=== PATIENT | female | born 1970 | race Hispanic/Latino ===

== ENCOUNTER 2018-12-04 18:28 | Inpatient (IN) | payer SELFPAY ==
[~2018-12-04] VITALS: Ht 152.4 cm; Wt 79.1 kg
[2018-12-04] MEDS ORDERED: ZOSYN 3.375GM+NS 50ML 50 ML IV ONE (19:32)
[2018-12-04 19:52] LABS: BASOPHILS % (AUTO) 0.3 % (0.0-5.0); EOSINOPHILS % (AUTO) 2.3 % (0.0-8.0); MEAN CORPUSCULAR HGB CONC 34.5 g/dL (32.0-36.0); MEAN CORPUSCULAR VOLUME 89.8 fL (79-99); MONOCYTES % (AUTO) 6.1 % (3.0-13.0); NEUTROPHILS % (AUTO) 79.3 % (40.0-77.0); PLATELET COUNT (AUTO) 213 K/uL (130-400); RED BLOOD CELL COUNT(AUTO) 3.23 MIL/uL (4.00-5.50); RED CELL DISTRIBUTION WIDTH 13.1 % (11.0-15.5); WHITE BLOOD COUNT (AUTO) 19.4 K/uL (4.8-10.8)
[2018-12-04] MEDS ORDERED: ONDANSETRON HCL 4 MG/2 ML VIAL ONE (20:06)
[2018-12-04] MEDS ORDERED: MORPHINE SULFATE 4 MG/1ML SYG ONE (20:07)
[2018-12-04 20:12] LABS: CREATININE 0.9 mg/dL (0.5-1.5); POTASSIUM 4.1 mmol/L (3.5-5.1)
[2018-12-04 20:17] LABS: ALBUMIN 3.1 g/dL (3.5-5.0); BILIRUBIN,TOTAL 0.2 mg/dL (0.2-1.0); TOTAL PROTEIN, SERUM 7.4 g/dL (6.0-8.3)
[2018-12-04 20:35] LABS: CRP QUANTITATIVE 158.2 mg/L (0.00-9.0)
[2018-12-04] MEDS ORDERED: VANCOMYCIN 1GM+NS 250ML 250 ML IV ONE (20:56)
[2018-12-04] MEDS ORDERED: INSULIN HUMULIN R 100 UNIT/ML 3ML ONE (20:57)
[2018-12-04 21:08] LABS: ERYTHROCYTE SEDIMENTATION RATE 84 MM/HR (0-20)
[2018-12-04] MEDS: SODIUM CHLORIDE 0.9% 1000ML 1,000 ML IV SCH (21:41)
[2018-12-04] MEDS ORDERED: ONDANSETRON HCL 4 MG/2 ML VIAL IV PRN (21:45)
[2018-12-04] MEDS ORDERED: ACETAMINOPHEN 325 MG TAB PO PRN ×2 (21:45)
[2018-12-04] MEDS ORDERED: VANCOMYCIN 1GM+NS 250ML 250 ML IV SCH (21:45)
[2018-12-04] MEDS ORDERED: MORPHINE SULFATE 4 MG/1ML SYG IV PRN (21:45)
[2018-12-04] MEDS ORDERED: HYDRALAZINE HCL 20 MG/ML VIAL IV PRN (21:45)
[2018-12-04] MEDS ORDERED: VANCOMYCIN PROTOCOL PER PHARMACY IV SCH (22:00)
[2018-12-05] VITALS (7 sets, daily range): BP systolic 99–126; BP diastolic 54–72
--- NOTE | 2018-12-05 00:05 | NUR ---
[facility]: LT FOOT ABSCESS W/CELLULITIS / UNCONTROLLED DM. PATIENT DENIES PAIN AND SHORTNESS OF BREATH AT THIS TIME. ON ROOM AIR. RESPIRATIONS UNLABORED. BEDREST. SEE DOCUMENTATION FOR FULL ASSESSMENT. CALL LIGHT WITHIN REACH. INSTRUCTED PATIENT AND FAMILY TO CALL IF ASSISTANCE IS NEEDED.
[2018-12-05] MEDS ORDERED: ATOR10TA69 PO (00:42)
[2018-12-05] MEDS ORDERED: LOSA100T58 PO (00:42)
[2018-12-05] MEDS ORDERED: SITA1TAB6 PO (00:42)
[2018-12-05] MEDS ORDERED: COMPOUND IV REFRIGERATED 1 EACH IVSOLN MISC PRN (05:45)
[2018-12-05] MEDS: ZOSYN 3.375GM+NS 50ML 50 ML IV SCH ×3 (06:08→21:35)
[2018-12-05] MEDS: INSULIN HUMULIN R 100 UNIT/ML 3ML SQ SCH ×4 (06:15→21:35)
[2018-12-05] MEDS: VANCOMYCIN 1.25 GM in SODIUM CHLORIDE 0.9% 250 ML IV SCH ×2 (10:14→21:35)
[2018-12-05] MEDS: FAMOTIDINE/PF 20 MG/2 ML VIAL IV SCH ×2 (10:14→21:33)
[2018-12-05] MEDS: SODIUM CHLORIDE 0.9% 1000ML 1,000 ML IV SCH ×2 (10:16→17:00)
--- NOTE | 2018-12-05 12:35 | NUR ---
DCP CM met with pt discussed dc plans. Pt is semi-independent prior to admission, lives at home with spouse. Pt has a wheelchair bought by spouse. Denies any other equipments/services. Pt is a self pay, does not currently see a pcp, given community resources, [facility] assisting. DC plan to home once stable. CM to cont to follow up. Addendum: 12/05/18 at 1236 by SHONDA KEY LVN CM Amended: Links added.
[2018-12-06] VITALS (23 sets, daily range): BP systolic 98–147; BP diastolic 44–74
--- NOTE | 2018-12-06 01:43 | NUR ---
ASSUMED CARE Assumed care this time.
[2018-12-06] MEDS: SODIUM CHLORIDE 0.9% 1000ML 1,000 ML IV SCH ×3 (03:41→23:33)
--- NOTE | 2018-12-06 04:23 | NUR ---
NPO STATUS Pt remains NPO for surgery this am.
[2018-12-06] MEDS: ZOSYN 3.375GM+NS 50ML 50 ML IV SCH ×3 (05:23→20:29)
[2018-12-06] MEDS: INSULIN HUMULIN R 100 UNIT/ML 3ML SQ SCH ×4 (05:23→20:30)
[2018-12-06 05:26] LABS: HEMATOCRIT 25.2 % (36-48); MEAN CORPUSCULAR HEMOGLOBIN 32.2 pg (27.0-33.0); MEAN CORPUSCULAR HGB CONC 36.1 g/dL (32.0-36.0); MEAN CORPUSCULAR VOLUME 89.2 fL (79-99); PLATELET COUNT (AUTO) 242 K/uL (130-400); RED BLOOD CELL COUNT(AUTO) 2.82 MIL/uL (4.00-5.50); RED CELL DISTRIBUTION WIDTH 12.9 % (11.0-15.5); WHITE BLOOD COUNT (AUTO) 10.3 K/uL (4.8-10.8)
[2018-12-06 05:37] LABS: CREATININE 0.7 mg/dL (0.5-1.5); POTASSIUM 3.7 mmol/L (3.5-5.1)
[2018-12-06 05:51] LABS: CRP QUANTITATIVE 241.6 mg/L (0.00-9.0)
[2018-12-06] MEDS ORDERED: LIDOCAINE HCL 1% 20 ML VIAL ONE (05:59)
[2018-12-06] MEDS ORDERED: BUPIVACAINE/PF 0.5% 30ML VIAL ONE (06:00)
--- NOTE | 2018-12-06 06:15 | NUR ---
ALLERGY Pt told Or staff who came to pick her up for surgery she's allergic to Morphine,pts allergy updated.Pt taken to [facility] this time per OR staff.
[2018-12-06 06:22] LABS: ERYTHROCYTE SEDIMENTATION RATE 100 MM/HR (0-20)
[2018-12-06] MEDS ORDERED: PROPOFOL 10 MG/ML 20ML VIAL IV ONE (06:51)
[2018-12-06] MEDS ORDERED: MIDAZOLAM HCL 1 MG/ML 2ML VIAL ONE (06:51)
[2018-12-06] MEDS ORDERED: HYDROCODONE/ACETAMINOPHEN 5/325 MG TAB PO PRN (08:45)
[2018-12-06] MEDS: VANCOMYCIN 1.25 GM in SODIUM CHLORIDE 0.9% 250 ML IV SCH ×2 (10:24→20:30)
[2018-12-06] MEDS: FAMOTIDINE/PF 20 MG/2 ML VIAL IV SCH ×2 (10:24→20:29)
[2018-12-07 03:50] VITALS: BP 144/82
[2018-12-07 05:30] LABS: CREATININE 0.8 mg/dL (0.5-1.5); POTASSIUM 3.5 mmol/L (3.5-5.1)
[2018-12-07 05:35] LABS: MEAN CORPUSCULAR HGB CONC 34.4 g/dL (32.0-36.0); MEAN CORPUSCULAR VOLUME 90.1 fL (79-99); PLATELET COUNT (AUTO) 246 K/uL (130-400); RED BLOOD CELL COUNT(AUTO) 2.88 MIL/uL (4.00-5.50); RED CELL DISTRIBUTION WIDTH 13.2 % (11.0-15.5); WHITE BLOOD COUNT (AUTO) 7.8 K/uL (4.8-10.8)
[2018-12-07] MEDS: ZOSYN 3.375GM+NS 50ML 50 ML IV SCH (06:03)
[2018-12-07 06:05] LABS: ERYTHROCYTE SEDIMENTATION RATE 90 MM/HR (0-20)
[2018-12-07] MEDS: INSULIN HUMULIN R 100 UNIT/ML 3ML SQ SCH ×4 (06:10→20:38)
[2018-12-07 07:59] VITALS: BP 140/71
[2018-12-07] MEDS: METFORMIN HCL 500 MG TABLET PO SCH ×2 (09:11→16:54)
[2018-12-07] MEDS: SODIUM CHLORIDE 0.9% 1000ML 1,000 ML IV SCH (09:12)
[2018-12-07] MEDS: FAMOTIDINE/PF 20 MG/2 ML VIAL IV SCH ×2 (09:12→20:37)
[2018-12-07] MEDS: VANCOMYCIN 1.25 GM in SODIUM CHLORIDE 0.9% 250 ML IV SCH (09:12)
[2018-12-07] MEDS: LINAGLIPTIN 5 MG TABLET PO SCH (09:12)
[2018-12-07 11:00] VITALS: BP 150/74
[2018-12-07] MEDS: LEVOFLOXACIN 500 MG TABLET PO SCH (11:30)
[2018-12-07 16:00] VITALS: BP 118/56
[2018-12-07 19:53] VITALS: BP 123/57
[2018-12-08 00:31] VITALS: BP 150/72
[2018-12-08 04:00] VITALS: BP 128/60
[2018-12-08] MEDS: INSULIN HUMULIN R 100 UNIT/ML 3ML SQ SCH (06:30)
[2018-12-08 08:00] VITALS: BP 118/59
[2018-12-08] MEDS: LEVOFLOXACIN 500 MG TABLET PO SCH (10:22)
[2018-12-08] MEDS: FAMOTIDINE/PF 20 MG/2 ML VIAL IV SCH (10:22)
[2018-12-08] MEDS: LINAGLIPTIN 5 MG TABLET PO SCH (10:22)
[2018-12-08] MEDS: METFORMIN HCL 500 MG TABLET PO SCH (10:33)
[2018-12-08 11:00] VITALS: BP 135/75
[2018-12-08 16:00] VITALS: BP_SYST 121; BP_SYST 137; BP_DIAS 66; BP_DIAS 73
[2018-12-08] MEDS ORDERED: SILV20CR11 TP (16:07)
[2018-12-08] MEDS ORDERED: LEVO500T2 PO (16:07)
--- NOTE | 2018-12-08 18:30 | NUR ---
D/C HOME USING TEACH BACK TECHNIQUE RE; NEW MEDS, HOME MEDS. S/S TO WATCH FOR AND WHEN TO CALL MD OR 911. IV OUT INTACT, AAOX3, NO DISTRESS. FOLLOW UP WITH IN ONE WEEK CALL TO SET UP AN APPOINTMENT AT PHONE . DAILY, DRESSINGS WITH SILVADENE CREAM AND VASELINE GUAZE 4X4, KERLIX OR MECCA WRAPP, HEEL, WALK WITH LEFT SURGICAL SHOE AND WALKER OR CRUTCHES. FOLLOW UP AT [facility] [phone], CALL FOR APPOINTMENT 1-2 WEEKS. FOLLOW UP WITH YOUR PRIMARY DOCTOR IN 1-WEEK. MAY GO A WALK IN. OR CALL TO SET UP AN APPOINTMENT. MAKE SURE TO COMPLETE FULL COURSE OF ANTIBIOTIC THERAPY TO PREVENT SUPER INFECTIONS. CALL [phone] IF SHORTNESS OF BREATH OR CHEST PAIN DOES NOT RESOLVE WITH REST. IF FEVERS GREATER THAN 101.0 CALL YOUR PRIMARY DOCTOR.
== END 2018-12-08 18:49 | disposition home or self-care (01) | DRG 854 ==
LOC: EDH 18:28 → EDHIP 18:29 → 4CH 12-05
PROVIDERS: ADMIT Internal Medicine; ATTEND Internal Medicine
PROC: 0JBR0ZZ Excision of Left Foot Subcutaneous Tissue and Fascia, Open Approach (ICD-10-PCS; principal; 2018-12-06 06:55)
DX: A41.9 Sepsis, unspecified organism (principal); L02.612 Cutaneous abscess of left foot; L03.116 Cellulitis of left lower limb; E11.65 Type 2 diabetes mellitus with hyperglycemia; A49.01 Methicillin susceptible Staphylococcus aureus infection, unspecified site; E11.621 Type 2 diabetes mellitus with foot ulcer; L97.529 Non-pressure chronic ulcer of other part of left foot with unspecified severity; E11.40 Type 2 diabetes mellitus with diabetic neuropathy, unspecified; I10 Essential (primary) hypertension; L84 Corns and callosities; E78.5 Hyperlipidemia, unspecified; Z79.4 Long term (current) use of insulin; Z88.5 Allergy status to narcotic agent; Z91.19 Patient's noncompliance with other medical treatment and regimen
CPT/HCPCS: 36415; 73630; 73700; 73718; 80048; 80053; 80202; 82948; 83036; 83605; 85025; 85027; 85651; 86140; 87040; 87070; 87076; 87077; 87186; 87205; 97039; G0378; J1815; J2250; J2270; J2405; J2543; J2704; J3370; J3490; J7030